=== PATIENT | female | born 1990 | race Caucasian/White ===

== ENCOUNTER 2017-04-04 16:58 | Emergency (ER) | payer SELFPAY ==
[~2017-04-04] VITALS: Ht 160 cm; Wt 55.0 kg
[~2017-04-04 16:58] MED LIST: BACT800T5 PO; CEPH500C3 PO; CLOTCRE17 TOP
--- NOTE | 2017-04-04 17:22 | PD ---
HPI Chief Complaint: drug overdose Time Seen by Provider: 17:15 Travel History International Travel<30 days: No Contact w/Intl Traveler<30days: No Traveled to known affect area: No History of Present Illness HPI 26-year-old female was found unresponsive in a car syringe and needle in possession. EMS was called. Patient was given Narcan 0.4 mg IV. Patient regaining consciousness. Patient was transported to the ED for evaluation. Patient admitted to heroin abuse. Patient denies any headache. Patient denies any chest pain or shortness of breath. Patient denies abdominal pain. Patient denies any focal weakness or numbness of extremity. Patient denies any medical problem. Patient denies any allergy. PFSH Past Medical History Diminished Hearing: No Past Surgical History Other Surgery: Yes (THEY JUST LANCED MY HAND) Social History Alcohol Use: Yes Tobacco Use: Yes (06/13 PPD) Substance Use: Yes (IV DRUG USER, APPEARS UNDER THE INFLUENCE NOW) Allergies-Medications (Allergen,Severity, Reaction): Coded Allergies: azithromycin (Unverified Allergy, Severe, HIVES, 01/22/17) penicillin G (Unverified Allergy, Severe, 01/22/17) Reported Meds & Prescriptions Reported Meds & Active Scripts Active Clotrimazole Anti-Fungal (Clotrimazole) Cre 1 Applic TOP TID APLLY TO: Keflex (Cephalexin Monohydrate) 500 Mg Cap 500 Mg PO QID 5 Days Bactrim DS (Sulfamethoxazole-Trimethoprim DS) 1 Tab Tab 1 Tab PO BID 10 Days Review of Systems General / Constitutional: No: Fever Eyes: No: Visual changes HENT: No: Headaches Cardiovascular: No: Chest Pain or Discomfort Respiratory: No: Shortness of Breath Gastrointestinal: No: Abdominal Pain Genitourinary: No: Dysuria Musculoskeletal: No: Pain Skin: No Rash Neurologic: No: Weakness Psychiatric: No: Depression Endocrine: No: Polydipsia Hematologic/Lymphatic: No: Easy Bruising Physical Exam Narrative GENERAL: Well-nourished, well-developed patient. SKIN: Focused skin assessment warm/dry. HEAD: Normocephalic. EYES: No scleral icterus. No injection or drainage. Pupil 1 mm equal reactive. NECK: Supple, trachea midline. No JVD or lymphadenopathy. CARDIOVASCULAR: Regular rate and rhythm without murmurs, gallops, or rubs. RESPIRATORY: Breath sounds equal bilaterally. No accessory muscle use. GASTROINTESTINAL: Abdomen soft, non-tender, nondistended. MUSCULOSKELETAL: No cyanosis, or edema. BACK: Nontender without obvious deformity. No CVA tenderness. Neurologic exam: Patient's drowsy, answers questions appropriately. Patient moves all extremities well. No obvious focal neurological deficit. Data Data Orders Orders Electrocardiogram (04/04/17 17:15) Complete Blood Count With Diff (04/04/17 17:15) Basic Metabolic Panel (Bmp) (04/04/17 17:15) Iv Access Insert/Monitor (04/04/17 17:15) Ecg Monitoring (04/04/17 17:15) Oximetry (04/04/17 17:15) [facility] Medical Decision Making Medical Screen Exam Complete: Yes Emergency Medical Condition: Yes Differential Diagnosis Differential diagnosis including drug overdose, likely imbalance, TIA, CVA. Narrative Course 26-year-old female was found unresponsive and responded to Narcan IV. Patient admitted to heroin abuse. Patient will be observed in the ED. Johnson Diaz MD Apr 04, 2017 17:22
[2017-04-04 17:23] VITALS: BP 102/65; PULSE 77; RESP 12; TEMP 98.3; O2SAT 95
[2017-04-04 17:30] VITALS: RESP 12; O2SAT 96
[2017-04-04 18:09] LABS: AUTOMATED NEUTROPHIL # 1.3 TH/MM3 (1.8-7.7); BASOPHIL % 0.2 % (0.0-2.0); EOSINOPHIL % 0.2 % (0.0-4.0); HEMATOCRIT 34.6 % (35.0-46.0); HEMOGLOBIN 11.3 GM/DL (11.6-15.3); LYMPH % 43.9 % (9.0-44.0); LYMPHOCYTE # 1.5 TH/MM3 (1.0-4.8); MEAN CORPUSCULAR HEMOGLOBIN 27.1 PG (27.0-34.0); MEAN CORPUSCULAR HGB CONC 32.7 % (32.0-36.0); MEAN PLATELET VOLUME 8.2 FL (7.0-11.0); MONO % 16.1 % (0.0-8.0); MONOCYTE # 0.5 TH/MM3 (0-0.9); NEUT % 39.6 % (16.0-70.0); PLATELET COUNT 163 TH/MM3 (150-450); RED BLOOD COUNT 4.16 MIL/MM3 (4.00-5.30); RED CELL DISTRIBUTION WIDTH 14.9 % (11.6-17.2); WHITE BLOOD COUNT 3.4 TH/MM3 (4.0-11.0)
[2017-04-04] MEDS ORDERED: SUBO8MIS SL ×2 (18:13)
[2017-04-04 18:24] LABS: BICARBONATE 27.9 MEQ/L (21.0-32.0); CALCIUM 9.1 MG/DL (8.5-10.1); CREATININE 0.64 MG/DL (0.50-1.00)
[2017-04-04 18:46] VITALS: BP 104/63; PULSE 78; RESP 16; O2SAT 100
[2017-04-04 19:20] VITALS: BP 102/67; PULSE 87; RESP 16; O2SAT 100
[2017-04-04 22:40] VITALS: BP 92/51; PULSE 79; RESP 16; O2SAT 97
--- NOTE | 2017-04-04 23:03 | EKG ---
Date Performed: 04/04/2017 Time Performed: 18:31:12 PTAGE: 26 years EKG: Sinus rhythm NORMAL ECG NO PREVIOUS TRACING DOCTOR: Dhiraj Singh Interpretating Date/Time 04/04/2017 23:02:04
--- NOTE | 2017-04-04 23:03 | EKG ---
Date Performed: 04/04/2017 Time Performed: 18:31:12 PTAGE: 26 years EKG: Sinus rhythm NORMAL ECG NO PREVIOUS TRACING DOCTOR: Dhiraj Singh Interpretating Date/Time 04/04/2017 23:02:04
--- NOTE | 2017-04-04 23:03 | EKG ---
Date Performed: 04/04/2017 Time Performed: 18:31:12 PTAGE: 26 years EKG: Sinus rhythm NORMAL ECG NO PREVIOUS TRACING DOCTOR: Dhiraj Singh Interpretating Date/Time 04/04/2017 23:02:04
[2017-04-05 05:50] VITALS: BP 100/56; PULSE 73; RESP 16
[2017-04-05 10:00] VITALS: BP 99/54; PULSE 72; RESP 18
--- NOTE | 2017-04-05 11:26 | PD ---
History of Present Illness Chief Complaint: OD/ Ingestion Time Seen by Provider: 11:00 Travel History International Travel<30 Days: No Contact w/Intl Traveler<30days: No Known affected area: No Legal Status Legal Status: Roach Act Roach Act Signed By: Dr Diaz History of Present Illness: 26-year-old female who presents under a Roach act after "saying the wrong thing last night". Patient apparently overdosed on heroin and required Narcan for regaining consciousness. She states that she was frustrated by the fact that she was here and was Roach acted as a result. This morning she is alert and oriented 4. She denies any suicidal or homicidal ideation, plan or intent. She has no psychotic symptoms. Her cognition is intact. While she agrees to the fact that she is abusing heroin, she does not want rehabilitation. [facility] the offered facility for this kind of treatment. She is verbally tom for safety. [facility] Past Medical History Medical History: Denies Significant Hx Diminished Hearing: No Tetanus Vaccination: > 5 Years Influenza Vaccination: No ?: Unknown Past Surgical History Surgical History: No Previous Surgery Other Surgery: Yes (THEY JUST LANCED MY HAND) Psychiatric History Psychiatric History Hx Psychiatric Treatment: States that she "may have been admitted when I was a kid". Denies any recent inpatient admissions. History of Inpatient Treatment: Yes Guns or firearms in home: No Social History Hx Alcohol Use: Yes Hx Tobacco Use: Yes (06/13 PPD) Hx Substance Use: Yes Substance Use Type: Marijuana, Benzos (Valium,Xanax), Heroin Other Substances Used: Patient advises she gets her Xanax from the street, snorted it last night. Hx of Substance Use Treatment: Yes Allergies-Medications (Allergen,Severity, Reaction): Coded Allergies: azithromycin (Unverified Allergy, Severe, HIVES, 04/04/17) penicillin G (Unverified Allergy, Severe, 04/04/17) Reported Meds & Prescriptions Reported Meds & Active Scripts Active Reported Suboxone Sublingual Film (Buprenorphine-Naloxone Sublingual Film) 8-2 Mg Film 1 Film SL Unique ID number required: Review of Systems Except as stated in HPI: all other systems reviewed are Neg Mental Status Examination Appearance: Appropriate Consciousness: Alert Orientation: x4 Motor Activity: Normal gait Speech: Unremarkable Language: Adequate Fund of Knowledge: Adequate Attention and Concentration: Adequate Memory: Unremarkable Mood: Appropriate Affect: Appropriate Thought Process & Associations: Intact Thought Content: Appropriate Hallucination Type: None Delusion Type: None Suicidal Ideation: No Suicidal Plan: No Suicidal Intention: No Homicidal Ideation: No Homicidal Plan: No Homicidal Intention: No Insight: Adequate Judgment: Adequate MDM Medical Decision Making Medical Record Reviewed: Yes Assessment/Plan interviewed at bedside, medical record reviewed and case discussed with nurse Mendenhall. Patient does not meet criteria for Roach act or involuntary psychiatric hospitalization at this time. Her primary problem is opiate abuse. She does not wish to receive assistance through [facility]. She is verbally tom for safety and she is competent to do so. Orders Orders Electrocardiogram (04/04/17 17:15) Complete Blood Count With Diff (04/04/17 17:15) Basic Metabolic Panel (Bmp) (04/04/17 17:15) Iv Access Insert/Monitor (04/04/17 17:15) Ecg Monitoring (04/04/17 17:15) Oximetry (04/04/17 17:15) Beta Hcg (Quant/Titer) (04/04/17 17:19) Drug Screen, Random Urine (04/04/17 17:19) Alcohol (Ethanol) (04/04/17 17:19) Psych Screen (04/04/17 19:05) Diet Regular Basic (04/05/17 Breakfast) Diet Regular Basic (04/05/17 Lunch) Results Vital Signs Date Time Temp Pulse Resp B/P (MAP) Pulse Ox O2 Delivery O2 Flow Rate FiO2 04/05/17 10:00 72 18 99/54 (69) Room Air 04/05/17 05:50 73 16 100/56 (71) Room Air 04/05/17 05:39 73 16 04/04/17 23:01 04/04/17 22:40 79 16 92/51 (65) 97 Room Air 04/04/17 19:20 87 16 102/67 (79) 100 Room Air 04/04/17 18:46 78 16 104/63 (77) 100 04/04/17 17:30 12 96 Room Air 04/04/17 17:23 98.3 77 12 102/65 (77) 95 Laboratory Tests Test 04/04/17 17:15 04/05/17 01:03 White Blood Count 3.4 Red Blood Count 4.16 Hemoglobin 11.3 Hematocrit 34.6 Mean Corpuscular Volume 83.0 Mean Corpuscular Hemoglobin 27.1 Mean Corpuscular Hemoglobin Concent 32.7 Red Cell Distribution Width 14.9 Platelet Count 163 Mean Platelet Volume 8.2 Neutrophils (%) (Auto) 39.6 Lymphocytes (%) (Auto) 43.9 Monocytes (%) (Auto) 16.1 Eosinophils (%) (Auto) 0.2 Basophils (%) (Auto) 0.2 Neutrophils # (Auto) 1.3 Lymphocytes # (Auto) 1.5 Monocytes # (Auto) 0.5 Eosinophils # (Auto) 0.0 Basophils # (Auto) 0.0 CBC Comment DIFF FINAL Differential Comment Blood Urea Nitrogen 8 Creatinine 0.64 Random Glucose 86 Calcium Level 9.1 Sodium Level 137 Potassium Level 4.5 Chloride Level 105 Carbon Dioxide Level 27.9 Anion Gap 4 Estimat Glomerular Filtration Rate 110 Human Chorionic Gonadotropin, Quant LESS THAN 1 Ethyl Alcohol Level LESS THAN 3 Urine Opiates Screen POS Urine Barbiturates Screen NEG Urine Amphetamines Screen NEG Urine Benzodiazepines Screen POS Urine Cocaine Screen POS Urine Cannabinoids Screen POS Diagnosis Primary Impression: Opiate abuse, episodic David Barone MD Apr 05, 2017 11:26
--- NOTE | 2017-04-05 13:40 | PD ---
Physical Exam Time Seen by Provider: 13:[address] Barone has evaluated the patient, lifted the Roach act cleared the patient for discharge. Data Data Last Documented VS Vital Signs Date Time Temp Pulse Resp B/P (MAP) Pulse Ox O2 Delivery O2 Flow Rate FiO2 04/05/17 10:00 72 18 99/54 (69) Room Air 04/04/17 22:40 97 04/04/17 17:23 98.3 Orders Orders Electrocardiogram (04/04/17 17:15) Complete Blood Count With Diff (04/04/17 17:15) Basic Metabolic Panel (Bmp) (04/04/17 17:15) Iv Access Insert/Monitor (04/04/17 17:15) Ecg Monitoring (04/04/17 17:15) Oximetry (04/04/17 17:15) Beta Hcg (Quant/Titer) (04/04/17 17:19) Drug Screen, Random Urine (04/04/17 17:19) Alcohol (Ethanol) (04/04/17 17:19) Psych Screen (04/04/17 19:05) Diet Regular Basic (04/05/17 Breakfast) Diet Regular Basic (04/05/17 Lunch) Labs Laboratory Tests Test 04/04/17 17:15 04/05/17 01:03 White Blood Count 3.4 TH/MM3 Red Blood Count 4.16 MIL/MM3 Hemoglobin 11.3 GM/DL Hematocrit 34.6 % Mean Corpuscular Volume 83.0 FL Mean Corpuscular Hemoglobin 27.1 PG Mean Corpuscular Hemoglobin Concent 32.7 % Red Cell Distribution Width 14.9 % Platelet Count 163 TH/MM3 Mean Platelet Volume 8.2 FL Neutrophils (%) (Auto) 39.6 % Lymphocytes (%) (Auto) 43.9 % Monocytes (%) (Auto) 16.1 % Eosinophils (%) (Auto) 0.2 % Basophils (%) (Auto) 0.2 % Neutrophils # (Auto) 1.3 TH/MM3 Lymphocytes # (Auto) 1.5 TH/MM3 Monocytes # (Auto) 0.5 TH/MM3 Eosinophils # (Auto) 0.0 TH/MM3 Basophils # (Auto) 0.0 TH/MM3 CBC Comment DIFF FINAL Differential Comment Blood Urea Nitrogen 8 MG/DL Creatinine 0.64 MG/DL Random Glucose 86 MG/DL Calcium Level 9.1 MG/DL Sodium Level 137 MEQ/L Potassium Level 4.5 MEQ/L Chloride Level 105 MEQ/L Carbon Dioxide Level 27.9 MEQ/L Anion Gap 4 MEQ/L Estimat Glomerular Filtration Rate 110 ML/MIN Human Chorionic Gonadotropin, Quant LESS THAN 1 MIU/ML Ethyl Alcohol Level LESS THAN 3 MG/DL Urine Opiates Screen POS Urine Barbiturates Screen NEG Urine Amphetamines Screen NEG Urine Benzodiazepines Screen POS Urine Cocaine Screen POS Urine Cannabinoids Screen POS MDM Supervised Visit with [facility]: No Narrative Course Dr. Barone has evaluated the patient, lifted the Roach act cleared the patient for discharge.. Patient contracts safety. Denies suicidal or homicidal ideations. Patient will be provided community resource packet to [facility] for follow-up. Has friends and family for support. Patient is medically cleared for discharge. Diagnosis Primary Impression: Opiate abuse, episodic Referrals: [facility] (Out patient) [facility] Primary Care Physician Psychiatrist [facility] Patient Instructions: General Instructions, Polysubstance Abuse (ED) Additional Instruction: Contract safety to your self and others Stop Using drugs Follow-up with [facility] Follow-up with psychiatry Follow-up with primary care provider Follow-up with [facility] Return to the emergency department immediately with worsening of symptoms Med/Other Pt SpecificInfo: No Change to Meds, No Meds Exist/No RX given Disposition: 01 DISCHARGE HOME Condition: Stable Elenita Tolentino Apr 05, 2017 13:40
== END 2017-04-05 13:59 | disposition home or self-care (01) ==
LOC: NEPC 16:58 → NEPJ 04-05 13:59
DX: F11.10 Opioid abuse, uncomplicated (principal); F17.200 Nicotine dependence, unspecified, uncomplicated
CPT/HCPCS: 80048; 80307; 84702; 85025; 93005

== ENCOUNTER 2017-06-19 18:55 | Emergency (ER) | payer SELFPAY ==
[~2017-06-19 18:55] MED LIST changes: -BACT800T5 PO; -CEPH500C3 PO; -CLOTCRE17 TOP; +SUBO8MIS SL
[2017-06-19 18:57] VITALS: BP 131/77; PULSE 68; RESP 16; TEMP 98; O2SAT 97
--- NOTE | 2017-06-19 20:42 | PD ---
HPI Chief Complaint: Skin Problem Time Seen by Provider: 19:17 Travel History International Travel<30 days: No Contact w/Intl Traveler<30days: No Traveled to known affect area: No History of Present Illness HPI Pt is a 26-year-old female presenting to the emergency for evaluation of an abscess to her neck. Patient reports that it started initially 2 weeks ago, she states it went away and then returned a few days ago. She states it's sore , red. She reports her pain is a 7 out of 10 and states it's throbbing. There are no alleviating factors. It is exacerbated with touch. She denies any fevers but does endorse IV drug use. She denies any dysphagia or drooling. PFSH Past Medical History Diminished Hearing: No ?: Unknown Past Surgical History Other Surgery: Yes (THEY JUST LANCED MY HAND) Social History Alcohol Use: Yes Tobacco Use: Yes (06/13 PPD) Substance Use: Yes (IV drug use) Allergies-Medications (Allergen,Severity, Reaction): Coded Allergies: azithromycin (Unverified Allergy, Severe, HIVES, 04/04/17) penicillin G (Unverified Allergy, Severe, 04/04/17) Reported Meds & Prescriptions Reported Meds & Active Scripts Active Reported Suboxone Sublingual Film (Buprenorphine-Naloxone Sublingual Film) 8-2 Mg Film 1 Film SL Unique ID number required: Review of Systems Except as stated in HPI: all other systems reviewed are Neg Skin: Positive Lumps, Positive Change in Pigmentation Physical Exam Narrative GENERAL: Thin, well-developed, alert female. Presenting in no acute distress. SKIN: Warm and dry. 3 cm raised, erythematous, fluctuant lesion to anterior neck. Surrounding induration noted. HEAD: Normocephalic. EYES: No scleral icterus. No injection or drainage. NECK: Lump to anterior neck CARDIOVASCULAR: Regular rate RESPIRATORY: No accessory muscle use. Data Data Last Documented VS Vital Signs Date Time Temp Pulse Resp B/P (MAP) Pulse Ox O2 Delivery O2 Flow Rate FiO2 06/19/17 18:57 98.0 68 16 131/77 (95) 97 Room Air MDM Medical Decision Making Medical Screen Exam Complete: Yes Emergency Medical Condition: Yes Interpretation(s) Vital Signs Date Time Temp Pulse Resp B/P (MAP) Pulse Ox O2 Delivery O2 Flow Rate FiO2 1/10/18 18:57 98.0 68 16 131/77 (50) 97 Room Air Differential Diagnosis Abscess versus cellulitis versus cyst versus other Narrative Course Patient is a 26-year-old female that presented to the emergency evaluation of an abscess to her anterior neck. Patient's vital signs are stable and she is awaiting bed placement. Patient was called to be bedded in the emergency department, she was no longer found in the emergency department after being called several times. Patient left AMA. Diagnosis Primary Impression: Left against medical advice Letty Darden Jun 19, 2017 20:42
== END 2017-06-19 20:36 | disposition left against medical advice (07) ==
LOC: NED 18:55
DX: L02.11 Cutaneous abscess of neck (principal); F17.210 Nicotine dependence, cigarettes, uncomplicated; Z53.21 Procedure and treatment not carried out due to patient leaving prior to being seen by health care provider
CPT/HCPCS: 99281